=== PATIENT | female | born 1985 | race Caucasian/White ===

== ENCOUNTER 2018-05-23 07:21 | Emergency (ER) | payer OTHER ==
[~2018-05-23] VITALS: Ht 160 cm; Wt 79.0 kg
[2018-05-23] MEDS ORDERED: METHOCARBAMOL 750 MG TABLET ONE (07:53)
[2018-05-23] MEDS ORDERED: KETOROLAC 30 MG/1 ML ONE (07:54)
[2018-05-23] MEDS ORDERED: KETOROLAC 30 MG/1 ML IM ONE (08:00)
[2018-05-23] MEDS ORDERED: METHOCARBAMOL 750 MG TABLET PO ONE (08:00)
--- NOTE | 2018-05-23 08:00 | NUR ---
PT. WAS MEDICATED FOR PAIN ORDERED. PT. AWOKE WITH LEFT SIDED NECK PAIN WITHOUT EVIDENCE OF TRAUMA. PT. IS UNABLE TO TURN HER HEAD TO THE LEFT. PT.'S CMS CHECKS ARE INTACT. WITH PULSES +2 THROUGHOUT. PT. IS RESTING WITH THE HOB ELEVATED GREATER THAN 30 DEGREES AT THIS TIME.
[2018-05-23 08:50] LABS: BASOPHILS # (AUTO) 0.07 x10^3/uL (0-0.1); BASOPHILS % (AUTO) 1 % (0-1); EOSINOPHILS # (AUTO) 0.16 x10^3/uL (0-0.4); EOSINOPHILS % (AUTO) 2 % (1-7); LYMPHOCYTES # (AUTO) 3.47 x10^3/uL (1-3.4); LYMPHOCYTES % (AUTO) 36 % (22-44); MD NO; MEAN CORPUSCULAR HEMOGLOBIN 29.8 pg (27.0-34.8); MEAN CORPUSCULAR HGB CONC 33.9 g/dL (32.4-35.8); MEAN CORPUSCULAR VOLUME 87.6 fL (80-100); MEAN PLATELET VOLUME 7.9 fL (7.4-10.4); MONOCYTES # (AUTO) 0.59 x10^3/uL (0.2-0.8); MONOCYTES % (AUTO) 6 % (2-9); NEUTROPHILS # (AUTO) 5.36 x10^3/uL (1.8-6.8); NEUTROPHILS % (AUTO) 56 % (42-75); PLATELET COUNT 397 x10^3/uL (130-400); RED CELL DISTRIBUTION WIDTH 12.7 % (9.6-15.2)
[2018-05-23 08:59] LABS: ALBUMIN 3.7 g/dL (3.4-5.0); ANION GAP 7 mmol/L (5-15); CALCIUM 9.2 mg/dL (8.5-10.1); CHLORIDE 109 mmol/L (98-107); CREATININE 0.88 mg/dL (0.55-1.02)
--- NOTE | 2018-05-23 09:40 | NUR ---
PT. STATES RELIEF FROM MEDICATIONS. PT. WAS GIVEN DISCHARGE INSTRUCTIONS AND SCRIPTS WITH UNDERSTANDING VERBALIZED ALONG WITH WILLINGNESS TO COMPLY. PT. WAS AMBULATORY TO THE DISCHARGE DESK. VSS.
[2018-05-23 09:41] VITALS: BP 110/75
== END 2018-05-23 09:51 | disposition home or self-care (01) ==
LOC: ED 09:30
DX: M54.12 Radiculopathy, cervical region (principal)
CPT/HCPCS: 36415; 72050; 80048; 82040; 85025; 96372; 99284; J1885; J7512